=== PATIENT | female | born 1985 | race African-American/Black ===

== ENCOUNTER 2016-07-30 18:11 | Emergency (ER) | payer OTHER ==
[~2016-07-30] VITALS: Ht 165.1 cm; Wt 59.0 kg
[~2016-07-30 18:11] MED LIST: CIPR250T30 PO; DOXY100T PO; HYDR-2678 PO; METR500T PO; ONDA4TAB10 SL
[2016-07-30 19:46] VITALS: BP 125/56
[2016-07-30] MEDS ORDERED: AMOX875T PO (20:21)
[2016-07-30] MEDS ORDERED: ERYT1OIN6 EACHEYE (20:21)
[2016-07-30] MEDS ORDERED: ACET-704 PO (20:21)
--- NOTE | 2016-07-30 20:21 | PHYS DOC ---
Past Medical History Past Medical History: UTI Past Surgical History: No Surgical History Additional Information: 0.5 PPD Alcohol Use: Occasionally Drug Use: None Adult General Chief Complaint Chief Complaint: DENTAL PROBLEM HPI HPI Patient is a 31 year old female who presents with right upper gum dental pain that began 3 days ago. Patient is also complaining of a stye to the right eye since yesterday. Patient denies fever or vision loss or trismus. Review of Systems Review of Systems Constitutional: Denies fever or chills [] Eyes: Sty to the right eye HENT: Right upper gum dental pain Cardiovascular: No additional information not addressed in HPI [] GI: Denies abdominal pain, nausea, vomiting, bloody stools or diarrhea [] : Denies dysuria or hematuria [] Musculoskeletal: Denies back pain or joint pain [] Integument: Denies rash or skin lesions [] Neurologic: Denies headache, focal weakness or sensory changes [] Endocrine: Denies polyuria or polydipsia [] Allergies Allergies Allergies Coded Allergies Type Severity Reaction Last Updated Verified No Known Drug Allergies 05/19/16 No Physical Exam Physical Exam Constitutional: Well developed, well nourished, no acute distress, non-toxic appearance. [] HENT: Normocephalic, atraumatic, bilateral external ears normal, oropharynx moist, no oral exudates, nose normal. [] Tooth #32 and 18 are broken and decayed, scattered dental caries throughout her teeth. Eyes: PERRLA, EOMI, right lower eyelid with small amount of swelling consistent with sty Neck: Normal range of motion, no tenderness, supple, no stridor. [] Abdomen: Bowel sounds normal, soft, no tenderness, no masses, no pulsatile masses. [] Skin: Warm, dry, no erythema, no rash. [] Back: No tenderness, no CVA tenderness. [] Extremities: No tenderness, no cyanosis, no clubbing, ROM intact, no edema. [] Neurologic: Alert and oriented X 3, normal motor function, normal sensory function, no focal deficits noted. [] Psychologic: Affect normal, judgement normal, mood normal. [] Current Patient Data Vital Signs Vital Signs Date Time Temp Pulse Resp B/P Pulse Ox O2 Delivery O2 Flow Rate FiO2 07/30/16 19:46 98.1 65 20 125/56 100 Room Air 98.1 EKG EKG [] Radiology/Procedures Radiology/Procedures [] Course & Med Decision Making Course & Med Decision Making Pertinent Labs and Imaging studies reviewed. (See chart for details) Patient has a stye to the right eye, she was discharged with erythromycin, warm compresses recommended to the area. She also has infected dental caries, discharged with amoxicillin for 10 days and Tylenol 3 as needed for pain. Follow -up with dentist next week. Dragon Disclaimer Dragon Disclaimer This electronic medical record was generated, in whole or in part, using a voice recognition dictation system. Departure Departure Impression: Primary Impression: Stye Additional Impressions: Dentalgia Infected dental caries Disposition: HOME, SELF-CARE Condition: STABLE Referrals: NO PCP (PCP) Follow-up with your dentist next week Patient Instructions: Dental Caries, Sty Additional Instructions: You were seen for right eye sty, use the prescribed eye ointment as ordered. Complete your antibiotics for the dental infection. Follow-up with your dentist as soon as possible. Scripts Erythromycin Base (Erythromycin)3.5 Gm Oint...g.1 Sangeetha EACHEYE Q4HRS #3.5 GM Prov:STEPHANIE SAMAYOA APRN 07/30/16 Acetaminophen With Codeine (Tylenol With Codeine #3 Tablet)1 Each Tablet1 Tab PO PRN Q6HRS PRN PAIN #30 TAB Prov:STEPHANIE SAMAYOA APRN 07/30/16 Amoxicillin 875 Mg Tablet1 Tab PO BID #20 TAB Prov:STEPHANIE SAMAYOA APRN 07/30/16 Problem Qualifiers Primary Impression: Stye Laterality: right Eyelid: upper Qualified Code: H00.011 - Hordeolum externum right upper eyelid STEPHANIE SAMAYOA APRN Jul 30, 2016 20:21
== END 2016-07-30 20:25 | disposition home or self-care (01) ==
LOC: ER 18:11
DX: K02.9 Dental caries, unspecified (principal); H00.012 Hordeolum externum right lower eyelid; K04.7 Periapical abscess without sinus; F17.200 Nicotine dependence, unspecified, uncomplicated; Z87.440 Personal history of urinary (tract) infections
CPT/HCPCS: 99283

== ENCOUNTER 2020-03-17 12:28 | Emergency (ER) | payer OTHER ==
[~2020-03-17] VITALS: Ht 165.1 cm; Wt 63.6 kg
[~2020-03-17 12:28] MED LIST changes: +ACET-704 PO; +AMOX875T PO; +ERYT1OIN6 EACHEYE
--- NOTE | 2020-03-17 12:50 | PHYS DOC ---
Past Medical History Past Medical History: UTI Past Surgical History: No Surgical History Smoking Status: Current Every Day Smoker Alcohol Use: Occasionally Drug Use: None General Adult EDM: Chief Complaint: ABDOMINAL PAIN HPI: HPI: Patient is a 34 year old female with no significant medical history who pres ents to the ED today complaining of a sharp 8 out of 10 left-sided specifically mid left sided abdominal pain as well as left lower quadrant abdominal pain that began yesterday. Patient is also complaining of nausea and vomiting. Denies any diarrhea. Denies any chance she is constipated. Denies any fever. Denies any cough or congestion. Review of Systems: Review of Systems: Constitutional: Denies fever or chills. [] Eyes: Denies change in visual acuity. [] HENT: Denies nasal congestion or sore throat. [] Respiratory: Denies cough or shortness of breath. [] Cardiovascular: Denies chest pain or edema. [] GI: Reports left-sided abdominal pain with nausea and vomiting, denies bloody stools or diarrhea. [] : Denies dysuria. [] Musculoskeletal: Denies back pain or joint pain. [] Integument: Denies rash. [] Neurologic: Denies headache, focal weakness or sensory changes. [] Psychiatric: Denies depression or anxiety. [] Heart Score: Risk Factors: Risk Factors: DM, Current or recent (<one month) smoker, HTN, HLP, family history of CAD, obesity. Risk Scores: Score 0 - 3: 2.5% MACE over next 6 weeks - Discharge Home Score 4 - 6: 20.3% MACE over next 6 weeks - Admit for Clinical Observation Score 7 - 10: 72.7% MACE over next 6 weeks - Early Invasive Strategies Allergies: Allergies: Allergies Coded Allergies Type Severity Reaction Last Updated Verified No Known Drug Allergies 05/19/16 No Physical Exam: PE: Constitutional: Well developed, well nourished, no acute distress, non-toxic appearance. [] HENT: Normocephalic, atraumatic, bilateral external ears normal, oropharynx moist, no oral exudates, nose normal. [] Eyes: PERRLA, EOMI, conjunctiva normal, no discharge. [] Neck: Normal range of motion, no tenderness, supple, no stridor. [] Cardiovascular:Heart rate regular rhythm, no murmur [] Lungs & Thorax: Bilateral breath sounds clear to auscultation [] Abdomen: Bowel sounds normal, soft, no tenderness, no masses, no pulsatile masses. [] Skin: Warm, dry, no erythema, no rash. [] Back: No tenderness, no CVA tenderness. [] Extremities: No tenderness, no cyanosis, no clubbing, ROM intact, no edema. [] Neurologic: Alert and oriented X 3, normal motor function, normal sensory function, no focal deficits noted. [] Psychologic: Affect normal, judgement normal, mood normal. [] EKG: EKG: [] Radiology/Procedures: Radiology/Procedures: []PROCEDURE: CT ABDOMEN PELVIS WO CONTRAST CT Abdomen and Pelvis without contrast History: Abdominal pain Technique: Noncontrast CT imaging was performed of the abdomen and pelvis. Multiplanar images are reviewed. Exposure: One or more of the following individualized dose reduction techniques were utilized for this examination: 1. Automated exposure control 2. Adjustment of the mA and/or kV according to patient size 3. Use of iterative reconstruction technique. Comparison: May 20, 2016 Findings: No urolithiasis or hydronephrosis is identified. Accurate evaluation of abdominal visceral organs is limited without intravenous contrast. There is no obvious abnormality of the spleen, liver, or pancreas. Gallbladder is present without obvious intraluminal abnormality by CT. There is no adrenal nodularity. Accurate evaluation of bowel is limited without oral contrast. There is no significant free air, free fluid, bowel dilatation. Normal caliber appendix is visualized inferior to the cecum without adjacent inflammatory change. There is mild levoscoliosis centered near the thoracolumbar junction. Impression: 1. There is no hydronephrosis or urolithiasis. There is no CT evidence of acute appendicitis. Electronically signed by: Sanam Mederos MD (03/17/2020 3:27 PM) [facility] DICTATED and SIGNED BY: SANAM MEDEROS MD DATE: 03/17/20 1527 Course & Med Decision Making: Course & Med Decision Making Pertinent Labs and Imaging studies reviewed. (See chart for details) This is a 34-year-old female patient presenting to the ED today with left-sided abdominal pain that began yesterday with nausea and vomiting. Patient was tested for COVID19. Will be called with results. Encouraged to quarantine herself. CBC with a WBC of 12.6 CMP with potassium of 2.8, patient was given. 2 doses of potassium in the ED and discharged with instructions to increase dietary potassium intake. Given 5-day supply of potassium chloride. Urine analysis appears contaminated. CT of the abdomen and pelvic is negative for any acute findings. Drug screen noted for methamphetamine use and marijuana use. Follow- up with PCP or GI. Anna Disclaimer: Anna Disclaimer: This electronic medical record was generated, in whole or in part, using a voice recognition dictation system. Departure Departure Impression: Primary Impression: Person under investigation for COVID-19 Additional Impressions: Lower abdominal pain Methamphetamine use Marijuana use Disposition: HOME, SELF-CARE Condition: STABLE Referrals: NO PCP (PCP) ANJALI BLACKMAN MD followup in 1-2 weeks Patient Instructions: Abdominal Pain (Nonspecific), Marijuana Abuse-Brief, Methamphetamine Abuse, Complications, Nausea and Vomiting, [id number] Additional Instructions: You were tested for COVID19, quarantine yourself until you hear from us with the results. Maintain good hand hygiene. Your abdominal work-up was negative for any acute findings. Consider not using methamphetamine and marijuana. Follow- up with your doctor in 1 to 2 weeks. Scripts Ondansetron (ONDANSETRON ODT) 4 Mg Tab.rapdis 1 TAB PO PRN Q6-8HRS, #16 TAB Prov: STEPHANIE SAMAYOA APRN 03/17/20 STEPHANIE SAMAYOA APRN Mar 17, 2020 12:50
[2020-03-17 12:54] LABS: BILIRUBIN,URINE SMALL (NEG); CLARITY,URINE CLOUDY; COLOR,URINE AMBER; NITRITE,URINE NEGATIVE (NEG); PROTEIN,URINE 100 mg/dL (NEG-TRACE)
[2020-03-17] MEDS ORDERED: FAMOTIDINE 20 MG/2 ML VIAL IVP ONE (13:00)
[2020-03-17] MEDS ORDERED: ONDANSETRON PF 4 MG/2 ML VIAL. IVP ONE (13:00)
[2020-03-17] MEDS ORDERED: IV NORMAL SALINE 1000ML BAG 1,000 ML IV ONE (13:00)
[2020-03-17 13:06] LABS: BACTERIA,URINE FEW /HPF (0-FEW)
[2020-03-17 13:26] LABS: BASO # 0.1 x10^3/uL (0.0-0.2); BASO % 1 % (0-3); EOS % 0 % (0-3); HEMATOCRIT 40.5 % (36.0-47.0); HEMOGLOBIN 13.8 g/dL (12.0-15.5); LYMPH # 1.5 x10^3/uL (1.0-4.8); LYMPH % 12 % (24-48); MEAN CORPUSCULAR HEMOGLOBIN 30 pg (25-35); MEAN CORPUSCULAR HGB CONC 34 g/dL (31-37); MEAN CORPUSCULAR VOLUME 89 fL (79-100); MONO # 0.9 x10^3/uL (0.0-1.1); MONO % 7 % (0-9); NEUT # 10.1 x10^3/uL (1.8-7.7); NEUT % 80 % (31-73); PLATELET COUNT 316 x10^3/uL (140-400); RED BLOOD COUNT 4.55 x10^6/uL (3.50-5.40); RED CELL DISTRIBUTION WIDTH 12.5 % (11.5-14.5); WHITE BLOOD COUNT 12.6 x10^3/uL (4.0-11.0)
[2020-03-17 13:36] LABS: BARBITURATES NEG (NEG); BENZODIAZEPINES NEG (NEG); CANNABINOIDS POS (NEG); COCAINE NEG (NEG); METHADONE NEG (NEG); OPIATES NEG (NEG); PHENCYCLIDINE NEG (NEG)
[2020-03-17 13:41] LABS: ALBUMIN 4.8 g/dL (3.4-5.0); ALBUMIN/GLOBULIN RATIO 1.3 (1.0-1.7); CREATININE 1.1 mg/dL (0.6-1.0); GFR 69.6; MAGNESIUM 2.1 mg/dL (1.8-2.4); TOTAL BILIRUBIN 0.6 mg/dL (0.2-1.0); TOTAL PROTEIN 8.6 g/dL (6.4-8.2)
[2020-03-17 13:46] LABS: AMPHETAMINE/METHAMPHETAMINE POS (NEG)
[2020-03-17 13:49] LABS: POTASSIUM 2.8 mmol/L (3.5-5.1)
[2020-03-17] MEDS ORDERED: POTASSIUM CHLORIDE 20 MEQ TABLET.ER. PO ONE ×2 (14:00→14:45)
[2020-03-17] MEDS ORDERED: KETOROLAC 30 MG/ML VIAL. IVP ONE (14:45)
[2020-03-17 15:17] VITALS: BP 156/98
--- NOTE | 2020-03-17 15:31 | RAD ---
CT Abdomen and Pelvis without contrast History: Abdominal pain Technique: Noncontrast CT imaging was performed of the abdomen and pelvis. Multiplanar images are reviewed. Exposure: One or more of the following individualized dose reduction techniques were utilized for this examination: 1. Automated exposure control 2. Adjustment of the mA and/or kV according to patient size 3. Use of iterative reconstruction technique. Comparison: May 20, 2016 Findings: No urolithiasis or hydronephrosis is identified. Accurate evaluation of abdominal visceral organs is limited without intravenous contrast. There is no obvious abnormality of the spleen, liver, or pancreas. Gallbladder is present without obvious intraluminal abnormality by CT. There is no adrenal nodularity. Accurate evaluation of bowel is limited without oral contrast. There is no significant free air, free fluid, bowel dilatation. Normal caliber appendix is visualized inferior to the cecum without adjacent inflammatory change. There is mild levoscoliosis centered near the thoracolumbar junction. Impression: 1. There is no hydronephrosis or urolithiasis. There is no CT evidence of acute appendicitis. Electronically signed by: Martínez Salinas MD (03/17/2020 3:27 PM) [facility]
[2020-03-17] MEDS ORDERED: ONDA4TAB12 PO (15:58)
--- NOTE | 2020-03-18 14:25 | NUR ---
IP: Attempted to call pt COVID results. No answer. Left voicemail for return call.
--- NOTE | 2020-03-19 08:45 | NUR ---
IP: Informed pt of negative COVID test. Pt verbalized understanding.
== END 2020-03-17 16:40 | disposition home or self-care (01) ==
LOC: ER 12:28
DX: R10.32 Left lower quadrant pain (principal); Z20.828 Contact with and (suspected) exposure to other viral communicable diseases; R11.2 Nausea with vomiting, unspecified; F12.90 Cannabis use, unspecified, uncomplicated; F15.90 Other stimulant use, unspecified, uncomplicated; F17.200 Nicotine dependence, unspecified, uncomplicated
CPT/HCPCS: 36415; 74176; 80053; 80307; 81001; 81025; 83690; 83735; 85025; 96361; 96374; 96375; 99285; G0480; J1885; J2405; J3490; J7030; U0003

== ENCOUNTER 2021-11-01 01:11 | Emergency (ER) | payer OTHER ==
[~2021-11-01] VITALS: Ht 165.1 cm; Wt 66.0 kg
[~2021-11-01 01:11] MED LIST changes: +ERYT1OIN3 EACHEYE; -ERYT1OIN6 EACHEYE; +ONDA4TAB12 PO
[2021-11-01 01:18] VITALS: BP 193/88
[2021-11-01] MEDS ORDERED: AMOX500C PO (01:50)
[2021-11-01] MEDS ORDERED: ACET325T9 PO (01:50)
[2021-11-01] MEDS ORDERED: IBUP-1007 PO (01:50)
[2021-11-01] MEDS ORDERED: ACETAMINOPHEN 325 MG TABLET. PO ONE (02:00)
[2021-11-01] MEDS ORDERED: AMOXICILLIN 250 MG CAPSULE. PO ONE (02:00)
[2021-11-01] MEDS ORDERED: IBUPROFEN 400 MG TABLET. PO ONE (02:00)
[2021-11-01] MEDS ORDERED: BUPIVACAINE MPF 0.25% 10 ML VIAL. IJ ONE (02:00)
[2021-11-01] MEDS ORDERED: LIDOCAINE 2% VISCOUS 15 ML SOLUTION. MM ONE (02:00)
--- NOTE | 2021-11-01 02:03 | PHYS DOC ---
Past Medical History Past Medical History: No Pertinent History Past Surgical History: No Surgical History Smoking Status: Never Smoker Alcohol Use: None Drug Use: None General Adult EDM: Chief Complaint: DENTAL PROBLEM HPI: HPI: 36 yo F, no sig pmhx/pshx/allergies, pw right lower molar pain. Molar has been broken for several months but only recently started having pain for the last few days. No f/c/n/v. Unable to see a dentist until November. Took alleve tonight without relief. Review of Systems: Review of Systems: Constitutional: Denies fever or chills. [] Eyes: Denies change in visual acuity. [] HENT: Denies nasal congestion or sore throat. [] +right lower molar pain Respiratory: Denies cough or shortness of breath. [] Cardiovascular: Denies chest pain or edema. [] GI: Denies abdominal pain, nausea, vomiting, bloody stools or diarrhea. [] : Denies dysuria. [] Musculoskeletal: Denies back pain or joint pain. [] Integument: Denies rash. [] Neurologic: Denies headache, focal weakness or sensory changes. [] Heart Score: C/O Chest Pain: No Risk Factors: Risk Factors: DM, Current or recent (<one month) smoker, HTN, HLP, family history of CAD, obesity. Risk Scores: Score 0 - 3: 2.5% MACE over next 6 weeks - Discharge Home Score 4 - 6: 20.3% MACE over next 6 weeks - Admit for Clinical Observation Score 7 - 10: 72.7% MACE over next 6 weeks - Early Invasive Strategies Current Medications: Current Medications Medications (Trade) Dose Ordered Sig/Ashley Start Time Stop Time Status Last Admin Dose Admin Acetaminophen (Tylenol) 650 mg 1X ONCE 11/01/21 02:00 11/01/21 02:01 11/01/21 01:46 650 MG Amoxicillin (Amoxil) 500 mg 1X ONCE 11/01/21 02:00 11/01/21 02:01 11/01/21 01:46 500 MG Bupivacaine HCl (Sensorcaine-Mpf 0.25%) 10 ml 1X ONCE 11/01/21 02:00 11/01/21 02:01 Ibuprofen (Motrin) 400 mg 1X ONCE 11/01/21 02:00 11/01/21 02:01 11/01/21 01:46 400 MG Lidocaine HCl (Viscous Lidocaine) 15 ml 1X ONCE 11/01/21 02:00 11/01/21 02:01 11/01/21 01:46 15 ML Allergies: Allergies: Allergies Coded Allergies Type Severity Reaction Last Updated Verified No Known Drug Allergies 05/19/16 No Physical Exam: PE: Constitutional: Well developed, well nourished, no acute distress, non-toxic appearance. [] HENT: Normocephalic, atraumatic, bilateral external ears normal, oropharynx moist, +R lower last molar cracked and ttp with obvious dental caries, no surrounding fluctuant abscess, no oral exudates, nose normal. [] Eyes: PERRLA, EOMI, conjunctiva normal, no discharge. [] Neck: Normal range of motion, no tenderness, supple, no stridor. [] Cardiovascular: well perfused Lungs & Thorax: unlabored RA Abdomen: soft nondistended Skin: Warm, dry, no erythema, no rash. [] Back: No tenderness, no CVA tenderness. [] Extremities: No tenderness, no cyanosis, no clubbing, ROM intact, no edema. [] Current Patient Data: Vital Signs: Vital Signs Date Time Temp Pulse Resp B/P (MAP) Pulse Ox O2 Delivery O2 Flow Rate FiO2 11/01/21 01:18 98.2 87 18 193/88 (123) 100 Room Air 98.2 EKG: EKG: [] Radiology/Procedures: Radiology/Procedures: [] Course & Med Decision Making: Course & Med Decision Making Pertinent Labs and Imaging studies reviewed. (See chart for details) Additional Social History: PMD from non-affiliated facility. Patient Lives at [facility]. Family History: Non-pertinent to today's complaint. Nursing Notes Reviewed Previous Medical Records requested via [facility] Web: Reviewed by me. EMERGENCY DEPARTMENT COURSE/ MEDICAL DECISION MAKING: I examined the patient, evaluated and addressed patient's chief complaint. Cracked molar with obvious dental caries. No visualized abscess. Low suspicion for deep tissue infection. The patient was treated with dental block (1% lido with epi + .25% bupivacaine), ibuprofen, tylenol, amoxicillin. On re-assessment, patient feels much better. The patient understands that todays Emergency Department evaluation does not represent a comprehensive medical workup, and it is impossible to diagnose all possible illnesses from a single Emergency Department visit. The patient verbalized understanding that it is absolutely necessary to have follow-up with regular primary care physician within 1-2 days for more detailed workup and continued exam. I explained the findings and plan to the patient, who expressed verbal understanding and agreed with plan for discharge and follow up. The patient was given after care instructions and welcomed to return to the ED for re-evaluation in 8-12 hours, especially for any new or worsening symptoms . Patient's blood pressure was elevated (>120/80) but appears stable without evidence of end organ damage, malignant hypertension, hypertensive emergency or urgency. The patient was counseled about the risks of hypertension and urged to pursue outpatient monitoring and therapy within a week with their primary care physician. The patient was stable at the time of discharge. DIAGNOSTIC IMPRESSION: 1. dental caries 2. cracked tooth DISPOSITION: Disposition: Discharge Home. Condition: Improved Follow-Up: PMD, Dental Prescriptions: amoxicillin, tylenol, ibuprofen Return to the Emergency Department for new or worsening symptoms. Dragon Disclaimer: Dragon Disclaimer: This electronic medical record was generated, in whole or in part, using a voice recognition dictation system. Departure Departure Impression: Primary Impression: Cracked tooth Additional Impression: Dental caries Disposition: HOME / SELF CARE / HOMELESS Condition: STABLE Referrals: NO PCP (PCP) Scripts Amoxicillin (AMOXICILLIN) 500 Mg Capsule 1 CAP PO TID for pharyngitis for 3 Days, #9 CAP Prov: ZANDRA SOLITARIO MD 11/01/21 Acetaminophen (TYLENOL) 325 Mg Tablet 2 TAB PO Q4HRS PRN for PAIN, #30 TAB Prov: ZANDRA SOLITARIO MD 11/01/21 Ibuprofen (IBUPROFEN) 600 Mg Tablet 600 MG PO PRN Q6HRS PRN for INFLAMMATION, #20 TAB Prov: ZANDRA SOLITARIO MD 11/01/21 ZANDRA SOLITARIO MD November 01, 2021 02:02
== END 2021-11-01 03:29 | disposition home or self-care (01) ==
LOC: ER 01:11
DX: K03.81 Cracked tooth (principal); K02.9 Dental caries, unspecified
CPT/HCPCS: 96372; 99284; J3490